=== PATIENT | female | born 1940 | race Caucasian/White ===

== ENCOUNTER 2016-11-27 08:22 | Emergency (ER) | payer MEDICARE ==
[2016-11-27] MEDS ORDERED: ASPIRIN 81 MG TABLET, CHEWABLE PO ONE (09:01)
[2016-11-27] MEDS ORDERED: IPRATROPIUM/ALBUTEROL 0.5-2.5 MG/3 ML AMPUL NEB ONE (09:47)
[2016-11-27 09:58] LABS: VENOUS BLOOD BASE EXCESS 6.1 mmol/L; VENOUS BLOOD HCO3 32.5 mmol/L (20-32); VENOUS BLOOD PCO2 54.4 mmHg (35-63); VENOUS BLOOD PH 7.39 (7.30-7.42)
[2016-11-27 09:59] LABS: ABSOLUTE BASOPHILS # (AUTO) 0.1 10^3/uL (0.0-0.2); ABSOLUTE EOSINOPHILS # (AUTO) 0.4 10^3/uL (0.0-0.6); ABSOLUTE LYMPHOCYTES (AUTO) 1.7 10^3/uL (0.5-4.7); ABSOLUTE MONOCYTES (AUTO) 0.8 10^3/uL (0.1-1.4); ABSOLUTE NEUT (AUTO) 7.1 10^3/uL (1.7-8.2); BASOPHILS % (AUTO) 0.9 % (0-2); EOSINOPHILS % (AUTO) 4.2 % (0-6); HEMATOCRIT 35.9 % (36.0-47.0); HGB HCT DIFFERENCE 0.1; LYMPHOCYTES % (AUTO) 17.1 % (13-45); MEAN CORPUSCULAR HEMOGLOBIN 30.2 pg (27.0-33.4); MEAN CORPUSCULAR HGB CONC 33.4 g/dL (32.0-36.0); MEAN CORPUSCULAR VOLUME 90 fl (80-97); RED BLOOD COUNT 3.97 10^6/uL (3.72-5.28); RED CELL DISTRIBUTION WIDTH 14.6 % (11.5-14.0); SEGMENTED NEUTROPHILS % (AUTO) 69.8 % (42-78); WHITE BLOOD COUNT 10.2 10^3/uL (4.0-10.5)
[2016-11-27 10:00] LABS: ALANINE AMINOTRANSFERASE 32 U/L (9-52); ALBUMIN 4.3 g/dL (3.5-5.0); ALKALINE PHOSPHATASE 79 U/L (38-126); ANION GAP 11 (5-19); ASPARTATE AMINO TRANSFERASE 27 U/L (14-36); BILIRUBIN,TOTAL 0.8 mg/dL (0.2-1.3); BLOOD UREA NITROGEN 12 mg/dL (7-20); CALCIUM 10.1 mg/dL (8.4-10.2); CARBON DIOXIDE 31 mmol/L (22-30); CHLORIDE 97 mmol/L (98-107); CREATINE KINASE 79 U/L (30-135); CREATININE RESULT 0.56 mg/dL (0.52-1.25); GLUCOSE 109 mg/dL (75-110); LIPASE 43.6 U/L (23-300); MAGNESIUM 1.8 mg/dL (1.6-2.3); POTASSIUM 3.9 mmol/L (3.6-5.0); TOTAL PROTEIN 6.6 g/dL (6.3-8.2)
[2016-11-27 10:16] LABS: CREATINE KINASE MB 2.84 ng/mL (<4.55)
[2016-11-27 10:17] LABS: TROPONIN I < 0.012 ng/mL
[2016-11-27] MEDS ORDERED: PREDNISONE 20 MG TABLET PO ONE (11:08)
[2016-11-27] MEDS ORDERED: ALBUTEROL SULFATE 0.083% NEB 2.5 MG/3 ML AMPUL NEB ONE (11:08)
[2016-11-27] MEDS ORDERED: DOXYCYCLINE HYCLATE 100 MG TABLET PO ONE (11:08)
[2016-11-27 11:23] LABS: APPEARANCE,URINE CLEAR; BILIRUBIN,URINE NEGATIVE (NEGATIVE); GLUCOSE, URINE NEGATIVE (NEGATIVE); KETONES,URINE NEGATIVE (NEGATIVE); LEUKOCYTE ESTERASE,URINE NEGATIVE (NEGATIVE); NITRITE,URINE NEGATIVE (NEGATIVE); PROTEIN,URINE NEGATIVE (NEGATIVE); URINE SPECIFIC GRAVITY 1.005; UROBILINOGEN,URINE NEGATIVE mg/dL (<2.0)
--- NOTE | 2016-11-27 12:59 | ER Document Report ---
ED General - General Chief Complaint: Shortness Of Breath Stated Complaint: WEAKNESS TRAVEL OUTSIDE OF THE [place] IN LAST 30 DAYS: No - HPI Patient complains to provider of: shortness of breath weakness Notes: Patient coming in with a history of COPD CHF states ongoing shortness of breath cough congestion and now generalized weakness and fatigue after being treated for bronchitis back in August. Patient states she is been seen multiple times by her family physician a PA locally states that her symptoms are more likely due to allergies has been taking [id number] allergy medication with no relief in her symptoms. Patient does have oxygen at home she's been using when necessary. According to the patient is prescribed when necessary according to family members this was to be 24 7. Patient does state that she wears the oxygen at night. Patient denies any recent smoking states there are family members to do smoke around her. Denies any recent antibiotics denies any travel. Upon my evaluation patient is resting comfortably now on oxygen with SPO2 saturation of 93%. Denies fevers chills chest pain abdominal pain - Related Data Allergies/Adverse Reactions: benzalkonium chloride [From Neosporin Aubrey To Go] Allergy (Verified 11/27/16 08: 30) pramoxine [From Neosporin Aubrey To Go] Allergy (Verified 11/27/16 08:30) Home Medications: Current Home Medications Budesonide/Formoterol Fumarate [Symbicort 160-4.5 Mcg Inhaler] 2 puff IN BID 05/08 [History] Diazepam [Diazepam] 5 mg PO BID PRN 11/27/16 [History] Loratadine [Claritin 10 mg Tablet] 10 mg PO DAILY 11/27/16 [History] Losartan/Hydrochlorothiazide [Losartan-Hctz 100-25 mg Tab] 1 tab PO DAILY [History] Tiotropium [place] [Spiriva Respimat] 2 puff IN DAILY 11/27/16 [History] Past Medical History - Social History Smoking Status: Former Smoker Chew tobacco use (# tins/day): No Frequency of alcohol use: None Drug Abuse: None Family History: Reviewed & Not Pertinent Patient has suicidal ideation: No Patient has homicidal ideation: No - Past Medical History Cardiac Medical History: Reports: Hx Hypertension Pulmonary Medical History: Reports: Hx COPD Renal/ Medical History: Reports: Hx Kidney Stones. Denies: Hx Peritoneal Dialysis Psychiatric Medical History: Reports: Hx Depression - anxiety - Immunizations Hx Pneumococcal Vaccination: 04/22/14 Review of Systems - Review of Systems Constitutional: No symptoms reported EENT: No symptoms reported Cardiovascular: No symptoms reported Respiratory: Cough, Short of breath, Wheezing Gastrointestinal: No symptoms reported Genitourinary: No symptoms reported Female Genitourinary: No symptoms reported Musculoskeletal: No symptoms reported Skin: No symptoms reported Hematologic/Lymphatic: No symptoms reported Neurological/Psychological: No symptoms reported -: Yes All other systems reviewed and negative Physical Exam - Vital signs Vitals: Temp Pulse Resp BP Pulse Ox 98.0 F 88 20 141/71 H 96 11/27/16 08:25 11/27/16 08:25 11/27/16 08:25 11/27/16 08:25 11/27/16 08:25 Interpretation: Normal - General General appearance: Appears well, Alert - HEENT Head: Normocephalic, Atraumatic Eyes: Normal Pupils: PERRL - Respiratory Respiratory status: No respiratory distress Chest status: Nontender Breath sounds: Wheezing Chest palpation: Normal - Cardiovascular Rhythm: Regular Heart sounds: Normal auscultation Murmur: No - Abdominal Inspection: Normal Distension: No distension Bowel sounds: Normal Tenderness: Nontender Organomegaly: No organomegaly - Back Back: Normal, Nontender - Extremities General upper extremity: Normal inspection, Nontender, Normal color, Normal ROM , Normal temperature General lower extremity: Normal inspection, Nontender, Normal color, Normal ROM , Normal temperature, Normal weight bearing. No: Malgorzata's sign - Neurological Neuro grossly intact: Yes Cognition: Normal Orientation: AAOx4 Frida Coma Scale Eye Opening: Spontaneous [place] Coma Scale Verbal: Oriented Frida Coma Scale Motor: Obeys Commands [place] Coma Scale Total: 15 Speech: Normal Motor strength normal: LUE, RUE, LLE, RLE Sensory: Normal - Psychological Associated symptoms: Normal affect, Normal mood - Skin Skin Temperature: Warm Skin Moisture: Dry Skin Color: Normal Course - Re-evaluation Re-evalutation: 11/27/16 15:13 Patient's lab work chest x-ray revealed no signs of infection or pneumonia. More likely patient has bronchitis. Patient has oxygen at home to use. At this time we will treat the patient with bronchodilators will add Atrovent to the patient's regimen will also prescribe steroids and antibiotic doxycycline. 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 - Vital Signs Vital signs: Temp Pulse Resp BP Pulse Ox 97.9 F 88 18 134/69 H 99 11/27/16 13:15 11/27/16 08:25 11/27/16 13:06 11/27/16 13:06 11/27/16 13:06 - Laboratory Result Diagrams: 11/27/16 09:40 11/27/16 09:20 Laboratory results interpreted by me: 11/27/16 11/27/16 11/27/16 09:20 09:20 09:40 Hct 35.9 L RDW 14.6 H VBG HCO3 32.5 H Chloride 97 L Carbon Dioxide 31 H Discharge - Discharge Clinical Impression: Bronchitis Condition: Good Disposition: HOME, SELF-CARE Instructions: Bronchitis ([facility]), Family Physicians / Practices Additional Instructions: Continue your home medications. Take medications as prescribed. Return to ER symptoms worsen. Please continue to wear your oxygen at least 2 L all the time now. You may increase this for shortness of breath. Use your albuterol inhaler or nebulizer at least every 4 hours for the next 5 days Prescriptions: Doxycycline Hyclate 100 mg PO BID #20 capsule Ipratropium [place] [Atrovent 0.02% Neb 0.5 Mg/2.5 Ml Vial.Neb] 0.5 mg IH BID # 30 vial.neb Prednisone [Deltasone 20 mg Tablet] 3 tab PO DAILY 5 Days Walker [Ultra-Light Rollator] 1 each MC DAILY #1 each Referrals: WILMA RIOS PA-C [Primary Care Provider] - Follow up as needed LEYDI REYES MD [ACTIVE STAFF] - Follow up as needed
[2016-11-27 13:15] VITALS: BP 134/69
--- NOTE | 2016-11-27 21:44 | EKG REPORT ---
SEVERITY:- NORMAL ECG - SINUS RHYTHM : Confirmed by: Shon Granados 27-Nov-2016 21:43:13
== END 2016-11-27 13:16 | disposition home or self-care (01) ==
LOC: ER 08:22
DX: J40 Bronchitis, not specified as acute or chronic (principal); I10 Essential (primary) hypertension; J44.9 Chronic obstructive pulmonary disease, unspecified; Z87.442 Personal history of urinary calculi; Z87.891 Personal history of nicotine dependence
CPT/HCPCS: 93005; 94640 ×2; 99285; 36415; 82553; 82550; 83690; 83735; 85025; 80053; 81001; 84484; 82803; 83880; 71020; 93010; A9270 ×5; J7512; J7620

== ENCOUNTER → 2019-05-11 | Outpatient (CLI) | payer MEDICARE ==
--- NOTE | 2019-05-12 08:26 | XCELERA REPORT ---
[address] [address] Lower Extremity Venous Evaluation Procedure: A bilateral duplex scan of the lower extremity veins was performed. The evaluation included responses to compression and other maneuvers with patient in the supine and standing positions to assess venous insufficiency. Right Sided Venous Evaluation Mid to low GSV not visualized due to bandaging. Deep venous system evaluation shows patent veins with no obstruction or significant reflux identified. Saphena Femoral junction: no reflux. Femoral vein reflux: no reflux. Greater Saphenous vein, Proximal thigh: reflux: no reflux. Greater Saphenous vein, Distal thigh: reflux: no reflux. Greater Saphenous vein, Proximal below knee: reflux: no reflux. No significant Perforators identified. Left Sided Venous Evaluation Deep venous system evaluatiion shows patent veins with no obstruction or significant reflux identified. Sapheno Femoral junction: no reflux. Femoral vein reflux: no reflux. Greater Saphenous vein, Proximal thigh: reflux: no reflux. Greater Saphenous vein, Distal thigh: reflux: no reflux. Greater Saphenous vein, Proximal below knee: reflux: no reflux. No significant Perforators identified. Interpretation Summary No duplex evidence of DVT or obstruction in the bilateral lower extremities. No deep or superficial reflux identified. Name: MATEUSZ TOURE Age: 78 yrs Gender: Female : [id number] Patient Status: Outpatient Patient Location: Study Date: 05/11/2019 10:47 AM Reason For Study: RT CALF ULCER Ordering Physician: TONE THOMPSON Performed By: Mohan Enriquez : TONE THOMPSON > Humberto Kelley
== END ==
LOC: SP 09:59
PROVIDERS: ATTEND Preventive Medicine Undersea and Hyperbaric Medicine
DX: L97.212 Non-pressure chronic ulcer of right calf with fat layer exposed (principal); I87.311 Chronic venous hypertension (idiopathic) with ulcer of right lower extremity
CPT/HCPCS: 93925; 93970